=== PATIENT | male | born 1970 | race Caucasian/White ===

== ENCOUNTER 2018-10-24 08:28 | Outpatient (CLI) | payer OTHER ==
[2018-10-24] MEDS ORDERED: BUFFERED LIDOCAINE 10 ML SYRINGE ONE (09:39)
--- NOTE | 2018-10-24 12:07 | Ultrasound Report ---
Reason: LOCALIZED ENLARGED LYMPH NODES,R INGUINAL LYMPADEN Procedure Date: 10/24/2018 Accession Number: [id number] / [id number] Procedure: US - Pelvic Limited or F/U CPT Code: FULL RESULT: EXAM: Limited PELVIC SOFT TISSUE ultrasound EXAM DATE: 10/24/2018 10:06 AM. CLINICAL HISTORY: Localized enlarged lymph nodes, right inguinal lymphadenopathy. COMPARISON: PELVIS LIMITED 10/24/2018 8:46 AM. TECHNIQUE: Real-time scanning was performed of the right groin region with static images obtained. FINDINGS: The palpable nodule is identified as a morphologically normal lymph node with preserved fatty hilum and normal hilar vascularity by limited color Doppler. Dimensions are 1.4 x 2.8 x 0.8 cm, less than 1 cm short axis. No abnormal capsular vascularity is detected by color Doppler and there is no loss of morphology. IMPRESSION: Morphologically normal lymph node as described. [facility]
== END 2018-10-24 08:29 | disposition home or self-care (01) ==
LOC: DI 08:28
PROVIDERS: ATTEND Internal Medicine Gastroenterology
DX: R59.0 Localized enlarged lymph nodes (principal)
CPT/HCPCS: 10005; 76857

== ENCOUNTER 2019-06-13 08:59 | Outpatient (CLI) | payer OTHER ==
--- NOTE | 2019-06-14 14:52 | MRI Report ---
Reason: PAIN IN RT SHOULDER Procedure Date: 06/13/2019 Accession Number: [id number] / [id number] Procedure: MRI - Shoulder RT W/O CPT Code: Final Report FULL RESULT: EXAM: RIGHT SHOULDER MRI WITHOUT CONTRAST EXAM DATE: 06/13/2019 09:55 AM. CLINICAL HISTORY: Pain in right shoulder. Patient reports pain deep inside shoulder joint and I am unable to raise arm overhead due to pain. Initial injury from wrestling at 13 years old. COMPARISON: None. TECHNIQUE: Multiplanar, multisequence T1-weighted and fluid-sensitive sequences of the shoulder without contrast. Other: None. FINDINGS: Acromioclavicular Region: The acromion is type II with mild anterior downsloping. Mild to moderate acromioclavicular osteophytes with inferiorly directed osteophytes resulting in mass effect on the supraspinatus myotendinous junction. The coracoacromial and coracoclavicular ligaments are intact. Mild subacromial/subdeltoid bursal fluid. Glenohumeral Region: No subluxation. Minimal joint fluid. Deep partial thickness cartilage loss centrally. Mild thickening throughout the joint capsule of the axillary recess without gross edema. Bone Marrow: No fracture or bone lesion. Subtle bone marrow edema at the acromioclavicular joint. Labrum: Degenerative fraying throughout. Partial-thickness undersurface tear posterior superior aspect extending deep to the biceps anchor. Musculature/Rotator Cuff: Moderate supraspinatus tendinopathy. Multiple ill-defined lobulated calcifications at the posterior insertion measuring up to 1.5 cm transverse. Shallow bursal surface fraying throughout. Ill-defined focal deep partial intrasubstance tear with possible bursal surface extension just anterior to the calcifications. Mild infraspinatus tendinopathy with shallow bursal surface fraying. Teres minor tendon intact. Mild subscapularis tendinopathy with subtle shallow intrasubstance tearing superior insertion. Mild fatty streaking throughout the musculature. Mild edema at the supraspinatus myotendinous junction. Biceps Tendon: Mild tendinopathy. Other: The subcutaneous tissues are unremarkable. IMPRESSION: 1. Moderate supraspinatus calcific tendinopathy with shallow bursal surface fraying. Focal deep intrasubstance tear just anterior to the calcifications with possible bursal surface extension. 2. Mild infraspinatus tendinopathy with shallow bursal surface fraying. 3. Mild infraspinatus tendinopathy with subtle shallow intrasubstance tear. 4. Mild biceps tendinopathy. 5. Degenerative fraying of the labrum with partial thickness tear posterior superior aspect extending deep to the biceps anchor (SLAP tear) disease. 6. Minimal subacromial subdeltoid bursitis. 7. Mild to moderate acromioclavicular degenerative change. 8. Anterior downsloping of the acromion and acromioclavicular osteophytes may contribute to symptoms of impingement. [facility]
== END 2019-06-13 09:00 | disposition home or self-care (01) ==
LOC: DI 08:59
PROVIDERS: ATTEND Family Medicine
DX: S43.431A Superior glenoid labrum lesion of right shoulder, initial encounter (principal); S46.811A Strain of other muscles, fascia and tendons at shoulder and upper arm level, right arm, initial encounter; M75.31 Calcific tendinitis of right shoulder; M75.51 Bursitis of right shoulder; M19.011 Primary osteoarthritis, right shoulder